=== PATIENT | female | born 1960 | race Caucasian/White ===

== ENCOUNTER 2019-02-04 06:14 | Inpatient (IN) | payer OTHER ==
[2019-01-31 11:58] VITALS: BMI 35.3
[2019-02-04] MEDS ORDERED: CEFAZOLIN 2 GM/D5W 2 GM/50 ML ML IVPB ONE (06:52)
[2019-02-04] MEDS: oxyCODONE HCL 10 MG SUSTAINED ACTING TABLET PO STA (07:20)
[2019-02-04] MEDS ORDERED: THROMBIN (RECOMBINANT) 5,000 UNIT VIAL TP ONE (07:34)
[2019-02-04] MEDS ORDERED: MIDAZOLAM HCL 2 MG/2 ML SINGLE DOSE VIAL ONE ×3 (07:41→08:26)
[2019-02-04] MEDS ORDERED: BUPIVACAINE LIPOSOME/PF (EXPAREL) 266 MG/20 ML VIAL ONE (07:50)
[2019-02-04] MEDS ORDERED: BUPIVACAINE HCL/PF (5 MG/ML) 30 ML VIAL IJ ONE (07:50)
[2019-02-04] MEDS ORDERED: THROMBIN (BOVINE) 5,000 UNIT VIAL TP ONE ×2 (09:08→10:00)
[2019-02-04] MEDS ORDERED: GELATIN, ABSORBABLE 100 EACH SPONGE TP ONE ×2 (09:08→10:00)
[2019-02-04] MEDS ORDERED: DEXAMETHASONE SOD PHOSPHATE 4 MG/1 ML VIAL ONE (09:11)
[2019-02-04] MEDS ORDERED: ONDANSETRON 4 MG/2 ML VIAL ONE ×2 (09:11→10:32)
[2019-02-04] MEDS ORDERED: GUM MASTIC/STORAX/MSAL/ALCOHOL 1 DRP DROPSBTL MC ONE (09:15)
--- NOTE | 2019-02-04 10:50 | HP ---
History & Physical Update - History History: No Change - Physical Physical: No Change - Assessment Assessment: No Change - Plan Plan: No Change
--- NOTE | 2019-02-04 10:52 | OP ---
Operative Note - Note: Operative Date: 02/04/19 Pre-Operative Diagnosis: L5/S1 spondylolithesis with RLE radiculopathy Operation: Posterior approach, transforaminal lumbar interbody fusion L5/S1, decompression, instrumentation, allograft implant, neuromonitoring Post-Operative Diagnosis: Same as Pre-op Surgeon: Ayden Ponce Host/Hostess: Mina Toure Anesthesiologist/LINUX SYSTEMS ENGINEER: Nitza Telles Anesthesia: Spinal Estimated Blood Loss (mls): 20 Fluid Volume Replaced (mls): 900 Operative Report Dictated: Yes
[2019-02-04] MEDS ORDERED: KETOROLAC TROMETHAMINE 30 MG/1 ML VIAL IVPUSH PRN (10:53)
[2019-02-04] MEDS ORDERED: ONDANSETRON 4 MG/2 ML VIAL IVPUSH PRN ×2 (10:53→11:10)
[2019-02-04] MEDS ORDERED: ACETAMINOPHEN 1000 MG/100 ML VIAL (NON FORMULARY) IVPB PRN (10:53)
--- NOTE | 2019-02-04 10:53 | SURG ---
Surgery Credit Advisor Note Credit Advisor: Mina Toure PA-C Date of Service: 02/04/19 Diagnosis: L5/S1 spondylolithesis with right lower extremity radiculopathy Procedure: Posterior approach, transforaminal lumbar interbody fusion L5/S1, decompression , instrumentation, allograft implant, neuromonitoring I was present for the entirety of the operative procedure. For further detail, please refer to operative report. Visit type - Case Type Case Type: Scheduled - New patient This patient is new to me today: Yes Date on this admission: 02/04/19
[2019-02-04] MEDS ORDERED: ACETAMINOPHEN INJECTION 100 ML IVPB ONE (10:59)
[2019-02-04] MEDS ORDERED: oxyCODONE HCL 5 MG TABLET PO PRN ×2 (11:10)
[2019-02-04] MEDS ORDERED: PROMETHAZINE HCL 25 MG/1 ML VIAL IVPUSH PRN (11:10)
[2019-02-04] MEDS: CEFAZOLIN 2 GM/D5W 2 GM/50 ML ML IVPB SCH (16:10)
[2019-02-04] MEDS: ACETAMINOPHEN 325 MG TABLET (FP) PO SCH ×2 (17:46→23:50)
[2019-02-04] MEDS: traMADol HCL 50 MG TABLET PO SCH ×2 (17:46→23:49)
--- NOTE | 2019-02-04 21:17 | OP ---
DATE OF OPERATION: 02/04/2019 PREOPERATIVE DIAGNOSES: 1. Spondylolisthesis, L5-S1. 2. Spinal stenosis, L5-S1. POSTOPERATIVE DIAGNOSES: 1. Spondylolisthesis, L5-S1. 2. Spinal stenosis, L5-S1. PROCEDURE PERFORMED: 1. Transforaminal lumbar interbody fusion, L5-S1. 2. Placement of instrumentation, L5-S1. 3. Placement of interbody cage. SURGEON: Ayden Ponce MD STILL CLEANER: BRIANNA Edgar ESTIMATED BLOOD LOSS: 50 mL. INTRAVENOUS FLUIDS: Per Anesthesia. ANESTHESIA: Spinal/TLIP. COMPLICATIONS: None. DISPOSITION: Patient was brought to the PACU in stable condition. INDICATION FOR SURGERY: The patient is a 58-year-old female who has been suffering from pain from her back down her legs. X-rays and MRI were completed which noted that she had spinal stenosis at L5-S1 secondary to a spondylolisthesis. She had gone through an exhaustive course of treatment for this which included medications, physical therapy, as well as injections. Unfortunately, her pain continued to persist despite all this. At this point, risks, benefits, and alternatives were discussed, and the patient consented to surgery. DESCRIPTION OF PROCEDURE: Patient was brought to the operating room by the anesthesia staff. After appropriate patient identification was performed, spinal anesthesia was given. A TLIP block was also given. The patient was able to position herself prone onto the OR table with all areas of bony prominences well padded at this time. The C-arm was brought in, and the L5 and S1 pedicles were marked off. Her back was prepped and draped in a sterile manner. At this point, timeout was completed. Incisions were made bilaterally over the L5 and S1 pedicles. Dissection was carried down to the fascia. The fascia was then split at this time. Under C-arm guidance, trocars were advanced into the pedicles. Through the trocars, a wire was inserted. Over the wires, tap was performed and screws inserted. On the right--hand side, retractor blades were set up to expose the L5-S1 facet joint. The facet joint was removed. The disk was entered. Using a series of pituitaries, Kerrisons, and curettes, a diskectomy was completed. The endplates were decorticated at this time. Bone graft was laid down. A cage filled with bone graft was placed in. Tulip pads were placed over the screws. A terrence was measured and placed in. Caps and compression were applied. On the left-hand side, a terrence was measured and placed in. Caps and compression were applied. AP and lateral x-rays confirmed the instrumentation to be in good position. The fascia was closed with a No. 1 Vicryl suture. Subcutaneous tissue was closed with 2-0 Vicryl suture. Skin was closed with 3-0 Monocryl suture. Dermabond was applied. Steri-Strips were applied. A sterile dressing was applied. Patient was placed supine on the OR bed and brought to the PACU in stable condition. Pacheco KEITH/[id number]
[2019-02-04] MEDS: DOCUSATE SODIUM 100 MG CAPSULE (FP) PO SCH (21:19)
[2019-02-04] MEDS: oxyCODONE HCL 10 MG SUSTAINED ACTING TABLET PO SCH (21:19)
[2019-02-04] MEDS: diazePAM 2 MG TABLET PO SCH (21:20)
[2019-02-05] MEDS: CEFAZOLIN 2 GM/D5W 2 GM/50 ML ML IVPB SCH ×2 (01:29→09:38)
[2019-02-05] MEDS: DOCUSATE SODIUM 100 MG CAPSULE (FP) PO SCH ×2 (06:02→08:03)
[2019-02-05] MEDS: ACETAMINOPHEN 325 MG TABLET (FP) PO SCH ×3 (06:03→11:20)
[2019-02-05] MEDS: traMADol HCL 50 MG TABLET PO SCH (06:03)
[2019-02-05 06:28] VITALS: BP 117/69; PULSE 72; TEMP 98.1
--- NOTE | 2019-02-05 06:54 | DS ---
Physical Exam: SUBJECTIVE: Patient seen and examined. Doing well. Recovering s/p L5/S1 TLIF. She is OOB and ambulating unassisted per patient's RN. Voiding spontaneously. Tolerating PO diet. Denies n/v/f/c, CP, palpitations, SOB, CROSS, LE motor weakness/numbness/tingling. OBJECTIVE: Vital Signs Temperature 98.1 F 02/05/19 06:00 Pulse Rate 72 02/05/19 06:00 Respiratory Rate 18 02/05/19 06:00 Blood Pressure 117/69 02/05/19 06:00 O2 Sat by Pulse Oximetry (%) 96 02/05/19 06:00 PHYSICAL EXAM GENERAL: Awake, alert, and fully oriented, in no acute distress. HEAD: NC. AT EYES: PERRL NECK: Trachea midline, full range of motion, supple. LUNGS: CTA bilat HEART: RRR ABDOMEN: Soft, NT, ND, normoactive bowel sounds EXTREMITIES: 2+ pulses, warm, well-perfused, no edema. NEUROLOGICAL: CN II - XII grossly intact. Normal speech, gait not observed. PSYCH: Normal mood, normal affect. SKIN: Lumbar incisions c/d/i. No erythema or swelling. No hematoma. LABS HOSPITAL COURSE: Date of Admission:02/04/19 Date of Discharge: 02/05/19 The patient was admitted to the Med-Surg Unit after an elective repair of their L5/S1 spondylolithesis. Now, s/p L5/S1 TLIF. The day of surgery, the patient ambulated the hallways with assistance. Narcotic and non-narcotic pain management control was achieved with an oral and IV approach. POD #1, xray was obtained and confirmed hardware placement at L5/S1 , no fractures or dislocations. Jennifer-operative IV ABX were administered. DVT prophylaxis was achieved with SCDs and early ambulation. The patient ambulated with Physical Therapy and no services were recommended upon discharge. Narcotic scripts and or muscle relaxants were checked with [facility] prior to escribe. The discharge instructions and an oral pain management plan were reviewed with the patient. All questions answered. Above plan discussed with Dr. Ponce and agreed. Minutes to complete discharge: 35 <Mina Toure P - Last Filed: 02/05/19 06:49> Physical Exam: SUBJECTIVE: Patient seen and examined OBJECTIVE: Vital Signs Temperature 98.1 F 02/05/19 06:00 Pulse Rate 72 02/05/19 06:00 Respiratory Rate 18 02/05/19 06:00 Blood Pressure 117/69 02/05/19 06:00 O2 Sat by Pulse Oximetry (%) 96 02/05/19 08:12 PHYSICAL EXAM GENERAL: The patient is awake, alert, and fully oriented, in no acute distress. HEAD: Normal with no signs of trauma. EYES: PERRL, extraocular movements intact, sclera anicteric, conjunctiva clear. ENT: Ears normal, nares patent, oropharynx clear without exudates, moist mucous membranes. NECK: Trachea midline, full range of motion, supple. LUNGS: Breath sounds equal, clear to auscultation bilaterally, no wheezes, no crackles, no accessory muscle use. HEART: Regular rate and rhythm, S1, S2 without murmur, rub or gallop. ABDOMEN: Soft, nontender, nondistended, normoactive bowel sounds, no guarding, no rebound, no hepatosplenomegaly, no masses. EXTREMITIES: 2+ pulses, warm, well-perfused, no edema. NEUROLOGICAL: Cranial nerves II through XII grossly intact. Normal speech, gait not observed. PSYCH: Normal mood, normal affect. SKIN: Warm, dry, normal turgor, no rashes or lesions noted. LABS CBC,CMP WBC 13.8 K/mm3 (4.0-10.8) H 02/05/19 07:15 RBC 4.84 M/mm3 (3.60-5.2) 02/05/19 07:15 Hgb 12.4 GM/dl (10.7-15.3) 02/05/19 07:15 Hct 38.1 % (32.4-45.2) 02/05/19 07:15 MCV 78.8 fl (80-96) L 02/05/19 07:15 MCH 25.7 pg (25.7-33.7) 02/05/19 07:15 MCHC 32.6 g/dl (32.0-36.0) 02/05/19 07:15 RDW 12.9 % (11.6-15.6) 02/05/19 07:15 Plt Count 268 K/MM3 (134-434) 02/05/19 07:15 MPV 8.3 fl (7.5-11.1) 02/05/19 07:15 Sodium 133 mmol/L (136-145) L 02/05/19 07:15 Potassium 4.6 mmol/L (3.5-5.1) 02/05/19 07:15 Chloride 102 mmol/L (98-107) 02/05/19 07:15 Carbon Dioxide 24 mmol/L (21-32) 02/05/19 07:15 Anion Gap 7 MMOL/L (8-16) L 02/05/19 07:15 BUN 17 mg/dl (7-18) 02/05/19 07:15 Creatinine 0.8 mg/dl (0.55-1.3) 02/05/19 07:15 Creat Clearance w eGFR 73.42 (>60) 02/05/19 07:15 Random Glucose 123 mg/dl (74-106) H 02/05/19 07:15 Calcium 9.2 mg/dl (8.5-10) 02/05/19 07:15 HOSPITAL COURSE: Date of Admission:02/04/19 Date of Discharge: 02/11/19 Patient seen and examined Agree with above D/C Planning <Ayden Ponce - Last Filed: 02/11/19 10:57> Visit type - Case Type Case Type: Scheduled <Mina Toure - Last Filed: 02/05/19 06:49>
[2019-02-05] MEDS: oxyCODONE HCL 10 MG SUSTAINED ACTING TABLET PO STA (07:48)
[2019-02-05] MEDS: LACTATED RINGERS SOLUTION 1,000 ML IV SCH ×2 (07:49→11:19)
[2019-02-05 08:09] LABS: HEMATOCRIT 38.1 % (32.4-45.2); HEMOGLOBIN 12.4 GM/dl (10.7-15.3); MCH 25.7 pg (25.7-33.7); MCHC 32.6 g/dl (32.0-36.0); MEAN CELL VOLUME 78.8 fl (80-96); MEAN PLT VOLUME 8.3 fl (7.5-11.1); PLATELET COUNT 268 K/MM3 (134-434); RBC 4.84 M/mm3 (3.60-5.2); RDW 12.9 % (11.6-15.6); WHITE BLOOD COUNT 13.8 K/mm3 (4.0-10.8)
[2019-02-05 08:33] LABS: ANION GAP 7 MMOL/L (8-16); BLOOD UREA NITROGEN 17 mg/dl (7-18); CALCIUM 9.2 mg/dl (8.5-10); CHLORIDE 102 mmol/L (98-107); CO2 24 mmol/L (21-32); CREATININE 0.8 mg/dl (0.55-1.3); GLUCOSE,RANDOM 123 mg/dl (74-106); POTASSIUM 4.6 mmol/L (3.5-5.1); SODIUM 133 mmol/L (136-145)
[2019-02-05] MEDS: diazePAM 2 MG TABLET PO SCH (09:36)
[2019-02-05] MEDS: oxyCODONE HCL 10 MG SUSTAINED ACTING TABLET PO SCH (09:37)
[2019-02-05] MEDS ORDERED: CHOLECALCIFEROL (VITAMIN D3) 1,000 UNIT TABLET (FP) PO SCH (10:00)
[2019-02-05] MEDS ORDERED: MULTIVITAMINS (DAILY MVI) TABLET (FP) PO SCH (10:00)
== END 2019-02-05 11:14 | disposition home or self-care (01) | DRG 460 ==
LOC: FM/S 06:14
PROVIDERS: ADMIT Orthopaedic Surgery Orthopaedic Surgery of the Spine; ATTEND Orthopaedic Surgery Orthopaedic Surgery of the Spine
PROC: 0SB40ZZ Excision of Lumbosacral Disc, Open Approach (ICD-10-PCS; 2019-02-04)
PROC: 4A1004G Monitoring of Central Nervous Electrical Activity, Intraoperative, Open Approach (ICD-10-PCS; 2019-02-04)
PROC: 0SG30AJ Fusion of Lumbosacral Joint with Interbody Fusion Device, Posterior Approach, Anterior Column, Open Approach (ICD-10-PCS; principal; 2019-02-04 09:24)
DX: M43.17 Spondylolisthesis, lumbosacral region (principal); M48.061 Spinal stenosis, lumbar region without neurogenic claudication; M54.17 Radiculopathy, lumbosacral region
CPT/HCPCS: 36415; 72100-TC-FY; 80048; 85027; 86803; 87389; 94760; 97116-GP; 97161-GP; J0131

== ENCOUNTER 2019-02-07 22:09 | Emergency (ER) | payer OTHER ==
[2019-02-07 22:18] VITALS: BP 142/81; PULSE 90; TEMP 98.1; BMI 34.8
--- NOTE | 2019-02-07 22:59 | PDOC ---
History of Present Illness - General Chief Complaint: Constipation Stated Complaint: CONSTIPATION, RECTAL BLOOD Time Seen by Provider: 02/07/19 22:10 History Source: Patient Exam Limitations: No Limitations - History of Present Illness Initial Comments: 02/07/19 22:59 This is a 58-year-old female who comes in complaining of constipation 5 days. Patient has not had a bowel movement in the last 5 days. Patient had some spinal surgery recently and is on tramadol. Patient said she has been taking laxatives but no bowel movement. Patient was straining at a bowel movement evening and had some bright red blood in the toilet bowl so came in for evaluation. Patient otherwise is complaining of some mild crampy abdominal pain but no nausea vomiting or diarrhea. Patient denies any fevers or chills. Patient denies history of chronic constipation Allergies: as per nursing notes Past Medical History: none Social history: Lives with family. No smoking. No alcohol. No illicit drugs. Surgical history: None General: No fevers or chills, no weakness, no weight loss HEENT: No change in vision. No sore throat,. No ear pain CardioVascular: no chest discomfort. No shortness of breath Respiratory:No cough, or wheezing. Gastrointestinal: no nausea, vomiting, diarrhea or constipation, No rectal bleeding Genitourinary: No dysuria, hematuria, or frequency Musculoskeletal: No joint or muscle pain or swelling Neurologic: No headache, vertigo, dizziness or loss of consciousness Psychiatric: nor depression Skin: No rashes or easy bruising Endocrine: no increased thirst or abnormal weight change Allergic: no skin or latex allergy All other systems reviewed and normal Exam: General: Well-nourished well-developed individual, no acute distress HEENT: Throat: Normal, tonsils normal, no erythema or exudate Neck: Supple, no meningeal signs, no lymphadenopathy Eyes::Pupils equal reactive and round, extraocular motion intact Chest: Nontender to palpation Cardiac: S1-S2 normal, regular rate and rhythm, no murmurs rubs or gallops Respiratory: Lungs clear to auscultation bilateral Abdomen: Soft, nondistended, normal bowel sounds, there is no tenderness on palpation diffusely rectal: Large amount of hard stool in the rectal vault. Disimpacted moderate amount and then patient was able to have a very large bowel movement in the toilet. Extremities: Warm, dry, no cyanosis, clubbing, or edema Skin: No rashes Neuro: Alert and oriented x3, CN II - XII intact, nonfocal exam with normal strength, normal sensation, normal reflexes, normal gait, Psych: Normal mood and affect Chest and plan: This is a 58-year-old female with constipation who required some disimpaction and then was able to have a bowel movement. Patient feels much better and will be discharged home Past History - Past Medical History Allergies/Adverse Reactions: Allergies Allergy/AdvReac Type Severity Reaction Status Date / Time codeine Allergy Severe Vomiting Verified 02/04/19 07:03 nitrofurantoin Allergy Severe Nausea Verified 01/31/19 11:47 [From Macrobid] tetanus toxoid, adsorbed Allergy Severe Swelling Verified 01/31/19 11:47 Home Medications: Ambulatory Orders Cholecalciferol (Vitamin D3) [Vitamin D] 2,000 unit PO DAILY 01/31/19 Multivitamins [Tab-A-Vit -] 1 tab PO DAILY 01/31/19 Diazepam [Valium] 2 mg PO TID PRN #24 tablet MDD 3 02/05/19 Docusate Sodium [Colace] 100 mg PO TID #30 capsule 02/05/19 Tramadol HCl 50 mg PO Q6H PRN #30 tablet MDD 4 02/05/19 Anemia: No Asthma: No Cancer: Yes ([facility] DX 1998--[place]GERY [place] 1999) Cardiac Disorders: No CVA: No COPD: No CHF: No Dementia: No Diabetes: No GI Disorders: Yes (DIVERTICULITIS) Disorders: No HTN: No Hypercholesterolemia: No Liver Disease: No Seizures: No Thyroid Disease: No - Surgical History Abdominal Surgery: Yes Appendectomy: Yes (1999) Cardiac Surgery: No Cholecystectomy: Yes () Lung Surgery: No Neurologic Surgery: No Orthopedic Surgery: No - Suicide/Smoking/Psychosocial Hx Smoking History: Never smoked Have you smoked in the past 12 months: No Hx Alcohol Use: No Drug/Substance Use Hx: No Substance Use Type: None Hx Substance Use Treatment: No *Physical Exam - Vital Signs Last Vital Signs Temp Pulse Resp BP Pulse Ox 98.1 F 90 18 142/81 96 02/07/19 22:11 02/07/19 22:11 02/07/19 22:11 02/07/19 22:11 02/07/19 22:11 *DC/Admit/Observation/Transfer Diagnosis at time of Disposition: Constipation Qualifiers: Constipation type: slow transit constipation Qualified Code(s): K59.01 - Slow transit constipation - Discharge Dispostion Disposition: HOME Condition at time of disposition: Stable Decision to Admit order: No - Referrals Referrals: Laura Wallace [Primary Care Provider] - - Patient Instructions Additional Instructions: Increase the stool softeners as long as you are taking the tramadol. In addition to that get some laxative U can take by mouth such as MiraLAX or milk of magnesia. Return to the emergency department immediately with ANY new, persistent or worsening symptoms. Continue any medications as previously prescribed by your physician. You should follow up with your primary doctor as soon as possible regarding today's emergency department visit. . Please make sure your doctor reviews the results of your emergency evaluation. Thank you for coming to the Emergency Department today for your care. It was a pleasure to see you today. Please note that your evaluation is INCOMPLETE until you follow-up with your doctor. - Post Discharge Activity
== END 2019-02-07 23:02 | disposition home or self-care (01) ==
LOC: FER 22:09
DX: K59.01 Slow transit constipation (principal); Z85.43 Personal history of malignant neoplasm of ovary
CPT/HCPCS: 99282-25